=== PATIENT | female | born 1965 | race Caucasian/White ===

== ENCOUNTER 2017-05-19 08:42 | Day surgery (SDC) | payer OTHER ==
[~2017-05-19] VITALS: Ht 167.6 cm; Wt 90.7 kg
[~2017-05-19 08:42] MED LIST: ACYCLOVIR400 MG PO; ALDACTONE50 MG PO; ALDARA1 EAC1 TP; ALPRAZOLAM0.5 MG PO; ASPIR-LOW81 MG PO; BUSPIRONE HCL15 MG PO; BUTALB-ACETAMI1 EACH PO; CALCITRIOL0.25 MCG PO; CIPRO HC OTIC S10 ML LEFT EAR; CLONIDINE HCL0.1 MG PO; COZAAR50 MG PO; CRANBERRY200 MG PO; CRANBERRY250 MG PO; CRESTOR10 MG PO; CYCLOBENZAPRINE10 M1 PO; CYCLOBENZAPRINE10 MG PO; CYMBALTA60 MG PO; Cymbalta PO; DILAUDID4 MG PO; FLOVENT 11120 INHALA IH; GABAPENTIN300 MG PO; HYCODAN SYRUP480 ML PO; HYDROXYCHLOROQ200 MG PO; HYDROXYZINE HCL25 MG PO; IMITREX50 MG PO; IRON325 MG PO; LEVO-T88 MCG PO; LEVOTHROID50 MCG PO; LOSARTAN POTASS25 MG PO; LOVENOX30 MG/0.3 SC; MAG-OXIDE400 MG PO; METHADONE10 MG PO; MYRBETRIQ50 MG PO; NEURONTIN300 MG PO; NEXIUM40 MG PO; OMEPRAZOLE40 M1 PO; OXAYDO5 MG PO; OXYCODONE HCL15 MG PO; OXYCODONE15 MG PO; OXYCODONE5 MG PO; OXYCONTIN20 MG PO; PLAQUENIL200 MG PO; PREDNISONE1 M1 PO; PREDNISONE50 MG PO; PROAIR HFA8.5 GM IH; PROLIA60 MG/1 ML SC; PROMETHAZINE HC25 M1 PO; PROVENTIL,2.5 MG/3 M IH; ROXICODONE15 MG PO; SANCTURA20 MG PO; SPIRONOLACTONE25 MG PO; TIGAN300 MG PO; TIROSINT88 MCG PO; TRIMETHOBENZAM300 MG PO; VALACYCLOVIR1000 MG PO; VALIUM5 MG PO; VALTREX50 MG/ML PO; VITAMIN B12 PO; VITAMIN D5000 INTUN PO; ZESTRIL,PRINIVI10 MG PO; ZOLPIDEM TARTRA10 MG PO
[2017-05-19 09:13] LABS: HEMATOCRIT 40.5 % (36.0-46.0); MCH 30.3 PG (29.0-34.0); MCHC 33.8 G/DL (30.0-36.0); MCV 89.6 FL (83-99); MEAN PLAT.VOLUME 9.5 uM^3 (9.5-12.4); PLATELET COUNT 205 K/uL (156-360); RBC DIS.WIDTH-CV 14.2 % (11.8-14.6); RBC DIS.WIDTH-SD 46.1 % (39-53); RED BLOOD COUNT 4.52 M/uL (3.80-5.20); WHITE BLOOD COUNT 6.5 K/uL (4.1-10.2)
[2017-05-19 09:32] LABS: ANION GAP 5 MEQ/L (2-14); CHLORIDE 108 MEQ/L (99-109); POTASSIUM 4.9 MEQ/L (3.7-5.4); SAMPLE HEMOLYSIS CHECK 0; SAMPLE ICTERIC CHECK 0; SAMPLE LIPEMIA CHECK 0; SODIUM 141 MEQ/L (136-147)
[2017-05-19 09:38] LABS: GFR ESTIMATE (CALCULATED) 51 mL/min/; GLUCOSE 90 mg/dL (70-99); UREA NITROGEN (BUN) 8 mg/dL (9-23)
[2017-05-19 09:58] VITALS: BP 137/92
[2017-05-19 14:13] VITALS: BP 130/82
[2017-05-19 15:10] VITALS: BP 135/90
== END 2017-05-19 15:20 | disposition home or self-care (01) ==
LOC: SDC 08:42
PROVIDERS: Urology
PROC: 0TJ98ZZ Inspection of Ureter, Via Natural or Artificial Opening Endoscopic (ICD-10-PCS; principal; 2017-05-19)
DX: N13.2 Hydronephrosis with renal and ureteral calculous obstruction (principal); N32.81 Overactive bladder; M32.9 Systemic lupus erythematosus, unspecified; N26.1 Atrophy of kidney (terminal); J45.909 Unspecified asthma, uncomplicated; E03.9 Hypothyroidism, unspecified; K21.9 Gastro-esophageal reflux disease without esophagitis; F41.8 Other specified anxiety disorders; F17.210 Nicotine dependence, cigarettes, uncomplicated; Z79.82 Long term (current) use of aspirin; Z86.73 Personal history of transient ischemic attack (TIA), and cerebral infarction without residual deficits; Z82.49 Family history of ischemic heart disease and other diseases of the circulatory system; Z83.3 Family history of diabetes mellitus; Z84.1 Family history of disorders of kidney and ureter
CPT/HCPCS: 80048; 85027; 93005; C1769; C1876; J0690; J1100; J2250; J2310; J2405; J2765; J3010

== ENCOUNTER → 2017-06-14 | Outpatient (CLI) | payer OTHER | END | disposition home or self-care (01) | LOC: NUC 10:11 | DX: R94.4 Abnormal results of kidney function studies (principal) | CPT/HCPCS: 78707; A9562 ==

== ENCOUNTER 2017-12-23 10:23 | Inpatient (IN) | payer OTHER ==
[~2017-12-23] VITALS: Ht 167.6 cm; Wt 91.9 kg
[~2017-12-23 10:23] MED LIST changes: +CYANOCOBALAM1000 MCG PO; -OXAYDO5 MG PO; +OXYCODONE HCL10 MG PO; +TRIMETHOPRIM100 MG PO; -VITAMIN B12 PO
[2017-12-23 10:57] LABS: HEMATOCRIT 35.4 % (36.0-46.0); HEMOGLOBIN 11.3 G/DL (11.9-15.5); MCH 27.8 PG (29.0-34.0); MCHC 31.9 G/DL (30.0-36.0); PLATELET COUNT 176 K/uL (156-360); RBC DIS.WIDTH-CV 14.8 % (11.8-14.6); RBC DIS.WIDTH-SD 47.6 % (39-53); RED BLOOD COUNT 4.07 M/uL (3.80-5.20); WHITE BLOOD COUNT 11.3 K/uL (4.1-10.2)
[2017-12-23 11:20] LABS: CHLORIDE 101 MEQ/L (99-109); POTASSIUM 5.2 MEQ/L (3.7-5.4); SODIUM 134 MEQ/L (136-147)
[2017-12-23 11:26] LABS: CREATININE 1.2 MG/DL (0.6-1.3); GFR ESTIMATE (CALCULATED) 51 mL/min/; GLUCOSE 81 mg/dL (70-99); UREA NITROGEN (BUN) 16 mg/dL (9-23)
[2017-12-23 11:35] LABS: BASE EXCESS -0.6 mEq/L (-3 to +3); BICARBONATE 22.9 mEq/L (22-26); CARBOXY HGB 1.7 % (0-5); COMMENTS - BLOOD GASES A+C+; DEVICE NC; METHEMOGLOBIN 0.8 % (0-1.5); O2 FLOW 4 L/MIN; PCO2 33 mm Hg (35-45); PO2 83 mm Hg (80-100); SITE RR; TOTAL RESP RATE 45 resp/min; pH 7.45 (7.35-7.45)
[2017-12-23 11:37] LABS: TROP-I INTERPRETATION NEGATIVE; TROPONIN-I 0.03 ng/mL (0.0-0.30)
[2017-12-23] MEDS ORDERED: XANAX0.5 MG PO (14:18)
[2017-12-23] MEDS ORDERED: CYCLOBENZAPRINE10 MG PO (14:23)
[2017-12-23] MEDS ORDERED: NEURONTIN300 MG PO (14:26)
[2017-12-23] MEDS ORDERED: COZAAR50 MG PO (14:28)
[2017-12-23] MEDS ORDERED: ANORO ELLIPTA1 EACH IH (14:32)
[2017-12-23] MEDS ORDERED: FUROSEMIDE20 MG PO (14:36)
[2017-12-23 17:41] VITALS: BP 132/84
[2017-12-23 20:10] VITALS: BP 135/80
[2017-12-23 23:59] VITALS: BP 117/56
[2017-12-24 03:45] VITALS: BP 105/63
[2017-12-24 06:50] LABS: HEMATOCRIT 35.2 % (36.0-46.0); MCH 27.6 PG (29.0-34.0); MCHC 31.3 G/DL (30.0-36.0); MCV 88.4 FL (83-99); PLATELET COUNT 190 K/uL (156-360); RBC DIS.WIDTH-SD 48.8 % (39-53); RED BLOOD COUNT 3.98 M/uL (3.80-5.20); WHITE BLOOD COUNT 10.3 K/uL (4.1-10.2)
[2017-12-24 07:04] LABS: ALKALINE PHOSPHATASE 62 IU/L (3-129); ALT (GPT) 16 IU/L (3-49); AST (GOT) 35 IU/L (2-34); CHLORIDE 98 MEQ/L (99-109); CREATININE 1.3 MG/DL (0.6-1.3); GFR ESTIMATE (CALCULATED) 46 mL/min/; GLUCOSE 71 mg/dL (70-99); MAGNESIUM 1.8 mg/dl (1.3-2.7); PHOSPHORUS 3.3 mg/dL (2.5-4.9); POTASSIUM 4.2 MEQ/L (3.7-5.4); SODIUM 136 MEQ/L (136-147); TOTAL BILIRUBIN 0.5 MG/DL (0.0-1.0); TOTAL PROTEIN 6.4 G/DL (6.4-8.3); UREA NITROGEN (BUN) 24 mg/dL (9-23)
[2017-12-24 08:06] VITALS: BP 132/76
[2017-12-24 12:10] VITALS: BP 136/72
[2017-12-24 16:35] VITALS: BP 104/73
[2017-12-25 00:55] VITALS: BP 107/65
[2017-12-25 03:24] VITALS: BP 106/59
[2017-12-25 08:00] VITALS: BP 148/84
[2017-12-25 11:52] VITALS: BP 134/88
[2017-12-25 16:00] VITALS: BP 128/80
[2017-12-25 16:17] LABS: BASOPHIL (%) 0.1 % (0-1); EOSINOPHIL (%) 0 % (0-5); HEMATOCRIT 35.2 % (36.0-46.0); HEMOGLOBIN 10.8 G/DL (11.9-15.5); IMMATURE GRANULOCYTE (%) 0.4 % (0.0-0.7); LYMPHOCYTE COUNT 0.4 K/uL (1.0-2.8); MCH 27.2 PG (29.0-34.0); MCHC 30.7 G/DL (30.0-36.0); MCV 88.7 FL (83-99); MONOCYTE (%) 4.4 % (3-12); MONOCYTE COUNT 0.3 K/uL (0-0.8); NEUTROPHIL (%) 90.1 % (45-76); NEUTROPHIL COUNT 6.8 K/uL (1.8-6.4); PLATELET COUNT 213 K/uL (156-360); RBC DIS.WIDTH-CV 14.8 % (11.8-14.6); RBC DIS.WIDTH-SD 48.7 % (39-53); RED BLOOD COUNT 3.97 M/uL (3.80-5.20); WHITE BLOOD COUNT 7.6 K/uL (4.1-10.2)
[2017-12-25 16:44] LABS: CHLORIDE 96 MEQ/L (99-109); GFR ESTIMATE (CALCULATED) 28 mL/min/; POTASSIUM 3.8 MEQ/L (3.7-5.4); SODIUM 132 MEQ/L (136-147)
[2017-12-25 16:46] LABS: GLUCOSE 142 mg/dL (70-99); UREA NITROGEN (BUN) 37 mg/dL (9-23)
[2017-12-25 20:13] VITALS: BP 120/79
[2017-12-26 04:35] VITALS: BP 108/69
[2017-12-26 08:32] VITALS: BP 143/68
[2017-12-26 09:27] LABS: CHLORIDE 99 MEQ/L (99-109); CREATININE 1.7 MG/DL (0.6-1.3); GFR ESTIMATE (CALCULATED) 34 mL/min/; POTASSIUM 3.5 MEQ/L (3.7-5.4); SODIUM 137 MEQ/L (136-147); UREA NITROGEN (BUN) 34 mg/dL (9-23)
[2017-12-26 09:29] LABS: GLUCOSE 69 mg/dL (70-99)
[2017-12-26 12:40] VITALS: BP 136/71
[2017-12-26 20:11] VITALS: BP 113/75
[2017-12-27] VITALS: BP 115/73
[2017-12-27 04:14] VITALS: BP 106/69
[2017-12-27 06:07] LABS: HEMOGLOBIN 10.7 G/DL (11.9-15.5); MCH 27.8 PG (29.0-34.0); MCHC 31.5 G/DL (30.0-36.0); MCV 88.3 FL (83-99); PLATELET COUNT 177 K/uL (156-360); RBC DIS.WIDTH-CV 14.8 % (11.8-14.6); RBC DIS.WIDTH-SD 47.8 % (39-53); RED BLOOD COUNT 3.85 M/uL (3.80-5.20)
[2017-12-27 08:10] VITALS: BP 100/69
[2017-12-27 08:43] LABS: CHLORIDE 100 MEQ/L (99-109); SODIUM 136 MEQ/L (136-147); UREA NITROGEN (BUN) 29 mg/dL (9-23)
[2017-12-27 08:48] LABS: CREATININE 1.2 MG/DL (0.6-1.3); GFR ESTIMATE (CALCULATED) 51 mL/min/; GLUCOSE 118 mg/dL (70-99); POTASSIUM 4.9 MEQ/L (3.7-5.4)
[2017-12-27 12:06] VITALS: BP 121/73
[2017-12-27 16:00] VITALS: BP 101/70
[2017-12-27 20:03] VITALS: BP 114/75
[2017-12-28] VITALS: BP 113/79
[2017-12-28 04:00] VITALS: BP 112/74
[2017-12-28 06:41] LABS: HEMATOCRIT 33.1 % (36.0-46.0); HEMOGLOBIN 10.3 G/DL (11.9-15.5); MCH 27.3 PG (29.0-34.0); MCHC 31.1 G/DL (30.0-36.0); MCV 87.8 FL (83-99); PLATELET COUNT 198 K/uL (156-360); RBC DIS.WIDTH-SD 48.6 % (39-53); RED BLOOD COUNT 3.77 M/uL (3.80-5.20); WHITE BLOOD COUNT 10.9 K/uL (4.1-10.2)
[2017-12-28 07:07] LABS: CHLORIDE 100 MEQ/L (99-109); GFR ESTIMATE (CALCULATED) > 59 mL/min/; GLUCOSE 125 mg/dL (70-99); POTASSIUM 4.3 MEQ/L (3.7-5.4); SODIUM 137 MEQ/L (136-147); UREA NITROGEN (BUN) 32 mg/dL (9-23)
[2017-12-28 08:34] VITALS: BP 107/55
[2017-12-28 11:14] VITALS: BP 110/60
[2017-12-28] MEDS ORDERED: LEVOFLOXACIN750 MG PO (12:14)
[2017-12-28] MEDS ORDERED: DUONEB 2.5-0.5 M3 ML AEROSOL (12:14)
[2017-12-28] MEDS ORDERED: PREDNISONE10 MG PO (12:14)
[2017-12-28] MEDS ORDERED: FUROSEMIDE20 MG PO (12:14)
== END 2017-12-28 14:40 | disposition home or self-care (01) | DRG 865 ==
LOC: EME 10:23 → 5SOUTH 14:13 → EDOF 14:13 → ENRESERV 14:14 → EDOF 14:19 → ENRESERV 15:11 → 5SOUTH 17:24 → ENPENDDIS 12-28 12:42 → 5SOUTH 12-28 14:40
PROVIDERS: Emergency Medicine; Hospitalist; Internal Medicine; Physician Assistant
DX: J10.89 Influenza due to other identified influenza virus with other manifestations (principal); I50.33 Acute on chronic diastolic (congestive) heart failure; J96.01 Acute respiratory failure with hypoxia; N17.9 Acute kidney failure, unspecified; T50.1X5A Adverse effect of loop [high-ceiling] diuretics, initial encounter; J44.1 Chronic obstructive pulmonary disease with (acute) exacerbation; J44.0 Chronic obstructive pulmonary disease with (acute) lower respiratory infection; M32.9 Systemic lupus erythematosus, unspecified; I27.20 Pulmonary hypertension, unspecified; I05.2 Rheumatic mitral stenosis with insufficiency; M35.00 Sjogren syndrome, unspecified; J10.1 Influenza due to other identified influenza virus with other respiratory manifestations; J40 Bronchitis, not specified as acute or chronic; E87.6 Hypokalemia; E03.9 Hypothyroidism, unspecified; G89.4 Chronic pain syndrome; F41.9 Anxiety disorder, unspecified; M19.90 Unspecified osteoarthritis, unspecified site; G43.909 Migraine, unspecified, not intractable, without status migrainosus; F17.200 Nicotine dependence, unspecified, uncomplicated; E66.9 Obesity, unspecified; Z68.32 Body mass index [BMI] 32.0-32.9, adult; I25.2 Old myocardial infarction; Z95.2 Presence of prosthetic heart valve; Z86.73 Personal history of transient ischemic attack (TIA), and cerebral infarction without residual deficits; Z87.11 Personal history of peptic ulcer disease; Z87.442 Personal history of urinary calculi; Z90.710 Acquired absence of both cervix and uterus; Z79.82 Long term (current) use of aspirin
CPT/HCPCS: 36600; 71045; 71275; 80048; 80053; 82803; 83735; 83880; 84100; 84484; 85025; 85027; 87070; 87205; 87449; 87502; 93005; 93306; 94640; 94640 76; 94760; 94799; 99202; 99281; 99285; J1650; J1940; J1956; J2060; J2270; J2920; J2930; J7512; Q0169

== ENCOUNTER 2018-01-14 19:24 | Inpatient (IN) | payer OTHER ==
[~2018-01-14] VITALS: Ht 167.6 cm; Wt 96.0 kg
[~2018-01-14 19:24] MED LIST changes: +ANORO ELLIPTA1 EACH IH; +DUONEB 2.5-0.5 M3 ML AEROSOL; +FUROSEMIDE20 MG PO; +LEVOFLOXACIN750 MG PO; +PREDNISONE10 MG PO; +XANAX0.5 MG PO
[2018-01-14 20:08] LABS: HEMATOCRIT 39.7 % (36.0-46.0); MCH 27.7 PG (29.0-34.0); MCHC 31.2 G/DL (30.0-36.0); MCV 88.6 FL (83-99); PLATELET COUNT 156 K/uL (156-360); RBC DIS.WIDTH-CV 17.8 % (11.8-14.6); RBC DIS.WIDTH-SD 55.4 % (39-53); RED BLOOD COUNT 4.48 M/uL (3.80-5.20); WHITE BLOOD COUNT 10.8 K/uL (4.1-10.2)
[2018-01-14 20:14] LABS: HEMOGLOBIN 12.4 G/DL (11.9-15.5)
[2018-01-14 20:15] LABS: CHLORIDE 91 mEq/L (99-109); POTASSIUM 3.8 mEq/L (3.7-5.4); SODIUM 137 mEq/L (136-147)
[2018-01-14 20:16] LABS: GLUCOSE 84 mg/dL (70-99)
[2018-01-14 20:20] LABS: CREATININE 1.4 mg/dL (0.6-1.3); GFR ESTIMATE (CALCULATED) 42 mL/min/; UREA NITROGEN (BUN) 16 mg/dL (9-23)
[2018-01-14 20:26] LABS: TROP-I INTERPRETATION NEGATIVE; TROPONIN-I 0.08 ng/mL (0.0-0.30)
[2018-01-14 20:37] LABS: BASE EXCESS 13.8 mEq/L (-3 to +3); BICARBONATE 38.4 mEq/L (22-26); CARBOXY HGB 5.5 % (0-5); COMMENTS - BLOOD GASES C+A+; DEVICE NC; O2 FLOW 2 L/MIN; PCO2 47 mm Hg (35-45); PO2 80 mm Hg (80-100); SITE LR; pH 7.52 (7.35-7.45)
[2018-01-14] MEDS ORDERED: HYDROXYCHLOROQ200 MG PO (21:17)
[2018-01-14] MEDS ORDERED: LASIX40 MG PO (21:24)
[2018-01-14] MEDS ORDERED: NEURONTIN300 MG PO (21:26)
[2018-01-14] MEDS ORDERED: ANORO ELLIPTA1 EACH IH (21:33)
[2018-01-14 22:19] LABS: APPEARANCE SL.HAZY ((CLEAR)); BILIRUBIN NEGATIVE; BLOOD SMALL; COLOR STRAW ((YELLOW)); GLUCOSE (STRIP) NEGATIVE; KETONES NEGATIVE; LEUKOCYTES NEGATIVE; NITRITE NEGATIVE; PROTEIN (STRIP) NEGATIVE; SPECIFIC GRAVITY 1.005 (1.000-1.030); UROBILINOGEN 0.2 MG/DL (0.2-1.0)
[2018-01-14 22:23] LABS: BACTERIA RARE /HPF; EPITHELIAL CELLS 1+ /HPF; MUCUS NONE SEEN /LPF; RED BLOOD CELLS 0-5 /HPF (0-5); UCUL ADDED? NO; WHITE BLOOD CELLS 0-5 /HPF (0-5)
[2018-01-15 02:30] VITALS: BP 117/77
[2018-01-15 02:37] LABS: ALBUMIN 3.3 g/dL (3.2-4.8)
[2018-01-15 02:40] LABS: TOTAL PROTEIN 6.2 g/dL (6.4-8.3)
[2018-01-15 02:41] LABS: TOTAL BILIRUBIN 0.7 mg/dL (0.0-1.0)
[2018-01-15 02:42] LABS: ALKALINE PHOSPHATASE 75 IU/L (3-129)
[2018-01-15 02:45] LABS: AST (GOT) 17 IU/L (2-34); DIRECT BILIRUBIN 0.3 mg/dL (0.0-0.3)
[2018-01-15 02:46] LABS: ALT (GPT) 19 IU/L (3-49)
[2018-01-15 02:51] LABS: TROP-I INTERPRETATION NEGATIVE; TROPONIN-I 0.07 ng/mL (0.0-0.30)
[2018-01-15 07:45] VITALS: BP 120/79
[2018-01-15 08:46] LABS: TROP-I INTERPRETATION NEGATIVE; TROPONIN-I 0.06 ng/mL (0.0-0.30)
[2018-01-15 09:01] LABS: CHLORIDE 92 MEQ/L (99-109); CREATININE 1.4 MG/DL (0.6-1.3); GFR ESTIMATE (CALCULATED) 42 mL/min/; GLUCOSE 78 mg/dL (70-99); POTASSIUM 3.3 MEQ/L (3.7-5.4); SODIUM 139 MEQ/L (136-147); UREA NITROGEN (BUN) 16 mg/dL (9-23)
[2018-01-15 10:35] LABS: THYROTROPIN (TSH) 6.6 MIU/L (0.4-5.5)
[2018-01-15 11:33] VITALS: BP 103/69
[2018-01-15 17:51] VITALS: BP 128/84
[2018-01-15 19:30] VITALS: BP 133/90
[2018-01-16] VITALS (7 sets, daily range): BP systolic 90–125; BP diastolic 51–82
[2018-01-16 05:42] LABS: HEMATOCRIT 37.3 % (36.0-46.0); HEMOGLOBIN 11.4 G/DL (11.9-15.5); MCH 27.3 PG (29.0-34.0); MCHC 30.6 G/DL (30.0-36.0); MCV 89.4 FL (83-99); PLATELET COUNT 152 K/uL (156-360); RBC DIS.WIDTH-CV 17.8 % (11.8-14.6); RBC DIS.WIDTH-SD 57.1 % (39-53); RED BLOOD COUNT 4.17 M/uL (3.80-5.20); WHITE BLOOD COUNT 7.5 K/uL (4.1-10.2)
[2018-01-16 06:09] LABS: CHLORIDE 93 MEQ/L (99-109); CREATININE 1.6 MG/DL (0.6-1.3); GFR ESTIMATE (CALCULATED) 36 mL/min/; GLUCOSE 86 mg/dL (70-99); POTASSIUM 3.8 MEQ/L (3.7-5.4); SODIUM 138 MEQ/L (136-147); UREA NITROGEN (BUN) 19 mg/dL (9-23)
[2018-01-16 14:39] LABS: POTASSIUM 4.3 MEQ/L (3.7-5.4)
[2018-01-17 03:24] VITALS: BP 119/70
[2018-01-17 05:29] LABS: BASOPHIL (%) 0.5 % (0-1); EOSINOPHIL (%) 2.3 % (0-5); EOSINOPHIL COUNT 0.2 K/uL (0-0.3); HEMOGLOBIN 11.2 G/DL (11.9-15.5); IMMATURE GRANULOCYTE (%) 1.3 % (0.0-0.7); LYMPHOCYTE (%) 15.6 % (15-42); MCH 27.7 PG (29.0-34.0); MCHC 31.1 G/DL (30.0-36.0); MCV 88.9 FL (83-99); MONOCYTE (%) 10.3 % (3-12); MONOCYTE COUNT 0.7 K/uL (0-0.8); NEUTROPHIL COUNT 4.5 K/uL (1.8-6.4); PLATELET COUNT 156 K/uL (156-360); RBC DIS.WIDTH-CV 17.5 % (11.8-14.6); RBC DIS.WIDTH-SD 55.8 % (39-53); RED BLOOD COUNT 4.05 M/uL (3.80-5.20); WHITE BLOOD COUNT 6.4 K/uL (4.1-10.2)
[2018-01-17 06:02] LABS: CHLORIDE 98 MEQ/L (99-109); CREATININE 1.4 MG/DL (0.6-1.3); GFR ESTIMATE (CALCULATED) 42 mL/min/; GLUCOSE 93 mg/dL (70-99); SODIUM 137 MEQ/L (136-147); UREA NITROGEN (BUN) 18 mg/dL (9-23)
[2018-01-17 09:05] VITALS: BP 113/69
[2018-01-17 11:56] VITALS: BP 88/62
[2018-01-17 15:24] VITALS: BP 94/63
[2018-01-17 17:03] VITALS: BP 126/90
[2018-01-17 19:21] VITALS: BP 116/79
[2018-01-18 00:37] VITALS: BP 114/76
[2018-01-18 05:00] VITALS: BP 120/75
[2018-01-18 05:21] LABS: BASOPHIL (%) 0.5 % (0-1); EOSINOPHIL (%) 1.4 % (0-5); EOSINOPHIL COUNT 0.1 K/uL (0-0.3); HEMATOCRIT 35.7 % (36.0-46.0); IMMATURE GRANULOCYTE (%) 1.2 % (0.0-0.7); LYMPHOCYTE (%) 17.9 % (15-42); MCH 27.7 PG (29.0-34.0); MCHC 30.8 G/DL (30.0-36.0); MCV 89.9 FL (83-99); MONOCYTE (%) 11.1 % (3-12); MONOCYTE COUNT 0.6 K/uL (0-0.8); NEUTROPHIL (%) 67.9 % (45-76); NEUTROPHIL COUNT 3.9 K/uL (1.8-6.4); PLATELET COUNT 178 K/uL (156-360); RBC DIS.WIDTH-CV 17.4 % (11.8-14.6); RBC DIS.WIDTH-SD 57.2 % (39-53); RED BLOOD COUNT 3.97 M/uL (3.80-5.20); WHITE BLOOD COUNT 5.8 K/uL (4.1-10.2)
[2018-01-18 05:46] LABS: CHLORIDE 98 MEQ/L (99-109); CREATININE 1.2 MG/DL (0.6-1.3); GFR ESTIMATE (CALCULATED) 51 mL/min/; GLUCOSE 94 mg/dL (70-99); POTASSIUM 4.4 MEQ/L (3.7-5.4); SODIUM 136 MEQ/L (136-147); UREA NITROGEN (BUN) 16 mg/dL (9-23)
[2018-01-18] MEDS ORDERED: FUROSEMIDE40 MG PO (08:26)
[2018-01-18] MEDS ORDERED: FUROSEMIDE80 MG PO (08:26)
[2018-01-18] MEDS ORDERED: LOSARTAN POTASS25 MG PO (08:26)
[2018-01-18] MEDS ORDERED: KEFLEX500 MG PO (08:26)
[2018-01-18] MEDS ORDERED: K-DUR20 MEQ PO (08:26)
[2018-01-18 09:49] VITALS: BP 119/81
== END 2018-01-18 12:09 | disposition home or self-care (01) | DRG 291 ==
LOC: EME 19:24 → 4EAST 01-15 01:25 → EDOF 01-15 01:25 → ENRESERV 01-15 01:26 → 4EAST 01-15 02:32
PROVIDERS: Hospitalist; Physician Assistant Medical
DX: I13.0 Hypertensive heart and chronic kidney disease with heart failure and stage 1 through stage 4 chronic kidney disease, or unspecified chronic kidney disease (principal); I50.33 Acute on chronic diastolic (congestive) heart failure; I08.1 Rheumatic disorders of both mitral and tricuspid valves; I27.20 Pulmonary hypertension, unspecified; E87.3 Alkalosis; E88.09 Other disorders of plasma-protein metabolism, not elsewhere classified; L03.115 Cellulitis of right lower limb; L03.116 Cellulitis of left lower limb; M32.9 Systemic lupus erythematosus, unspecified; M35.00 Sjogren syndrome, unspecified; R09.02 Hypoxemia; I42.9 Cardiomyopathy, unspecified; N18.3 Chronic kidney disease, stage 3 (moderate); J45.909 Unspecified asthma, uncomplicated; E03.9 Hypothyroidism, unspecified; M81.0 Age-related osteoporosis without current pathological fracture; F41.9 Anxiety disorder, unspecified; F32.9 Major depressive disorder, single episode, unspecified; G89.29 Other chronic pain; F17.200 Nicotine dependence, unspecified, uncomplicated; R29.6 Repeated falls; E66.9 Obesity, unspecified; Z68.33 Body mass index [BMI] 33.0-33.9, adult; I69.354 Hemiplegia and hemiparesis following cerebral infarction affecting left non-dominant side; I25.2 Old myocardial infarction; Z87.11 Personal history of peptic ulcer disease; Z87.442 Personal history of urinary calculi
CPT/HCPCS: 36600; 71045; 71250; 73030; 78582; 80048; 80076; 81003; 82803; 83605; 83735; 83880; 84132 91; 84443; 84484; 85025; 85027; 87040; 93005; 93970; 94640; 94799; 99202; 99281; 99285; A9540; A9567; J0690; J1644; J1940